=== PATIENT | male | born 1995 | race African-American/Black ===

== ENCOUNTER 2017-02-27 09:25 | Emergency (ER) | payer OTHER ==
[~2017-02-27] VITALS: Ht 180.3 cm; Wt 75.0 kg
[2017-02-27 09:25] VITALS: BP 160/84
[2017-02-27] MEDS ORDERED: ACETAMINOPHEN 325 MG TAB PO ONE (11:15)
[2017-02-27] MEDS ORDERED: IPRATROPIUM 0.5MG/ALBUTEROL 2.5MG INH SOL UD 3ML (DUONEB)(J7620) NEB ONE (11:15)
--- NOTE | 2017-02-27 11:48 | REP ---
Chest x-ray: Two views. History: Cough. . Comparison study: No comparison study . Findings: The lungs are well inflated and free of infiltrate. The pleural angles are sharp. The heart size is normal. Pulmonary vasculature is not increased. No significant bony abnormality is seen. Impression: Negative chest x-ray. Signed by Glenn Hernandez MD 02/27/2017 11:39 A
[2017-02-27] MEDS ORDERED: VENTAER IN (12:01)
[2017-02-27] MEDS ORDERED: ZITHTAB PO (12:01)
== END 2017-02-27 12:13 | disposition home or self-care (01) ==
LOC: M ED 09:25
DX: J45.901 Unspecified asthma with (acute) exacerbation (principal); J20.9 Acute bronchitis, unspecified

== ENCOUNTER 2017-05-22 09:58 | Emergency (ER) | payer OTHER | END 2017-05-22 12:37 | disposition home or self-care (01) | LOC: M ED 09:58 | DX: R07.89 Other chest pain (principal); M62.838 Other muscle spasm; Z91.013 Allergy to seafood; F17.210 Nicotine dependence, cigarettes, uncomplicated | CPT/HCPCS: 93005; 99284 ==

== ENCOUNTER 2017-12-20 11:35 | Emergency (ER) | payer SELFPAY, OTHER | END 2017-12-20 14:00 | disposition left against medical advice (07) | LOC: M ED 11:35 | DX: M54.9 Dorsalgia, unspecified (principal); Z53.21 Procedure and treatment not carried out due to patient leaving prior to being seen by health care provider ==